=== PATIENT | female | born 1985 | race Two or more races ===

== ENCOUNTER 2016-04-14 13:12 | Emergency (ER) | payer MEDICAID, OTHER ==
[~2016-04-14] VITALS: Ht 167.6 cm; Wt 147.4 kg
[2016-04-14 14:26] LABS: Albumin 3.4 g/dL (3.4-5.0); BUN/Creatinine Ratio 20.8; Bilirubin, Total 0.2 mg/dL (0.2-1.0); Calcium 9.4 mg/dL (8.5-10.1); Magnesium 1.9 mg/dL (1.6-2.6); Potassium 3.7 mmol/L (3.5-5.1); Total Protein 7.8 g/dL (6.4-8.2)
[2016-04-14 15:45] LABS: Basophils # (auto) 0 uL; Basophils % (auto) 0.2 % (0.0-2.0); Eosinophils # (auto) 0.1 uL; Eosinophils % (auto) 1.8 % (0.0-7.0); Hematocrit 37.5 % (36.0-46.0); Hemoglobin 12.6 g/dL (12.2-16.2); Lymphocytes # (auto) 2.2 uL; Lymphocytes % (auto) 26.9 % (10.0-50.0); Mean Corpuscular Hgb Conc. 33.7 g/dL (32.0-36.0); Mean Corpuscular Volume 86.2 fL (80.0-100.0); Mean Platelet Volume 8.2 fL (7.4-10.4); Monocytes # (auto) 0.6 uL; Monocytes % (auto) 7.8 % (0.0-12.0); Neutrophils # (auto) 5.1 uL; Neutrophils % (auto) 63.3 % (37.0-80.0); Platelet Count (auto) 374 10^3/uL (140-450); Red Cell Distribution Width 13.6 % (11.6-16.0); White Blood Cell 8.1 10^3/uL (4.4-10.8)
[2016-04-14] MEDS ORDERED: SODIUM CHLORIDE 0.9% 1,000 ML IVB ONE (16:04)
[2016-04-14] MEDS ORDERED: ONDANSETRON HCL 4 MG/2 ML VIAL IV ONE (16:15)
[2016-04-14 16:24] LABS: Amylase 44 U/L (25-115)
[2016-04-14 17:30] VITALS: BP 145/72
[2016-04-14 18:05] LABS: Urine Bilirubin Negative (Negative); Urine Blood Negative /uL (Negative); Urine Color Yellow (Yellow); Urine Glucose Normal (Normal); Urine Ketone Negative (Negative); Urine Nitrite Negative (Negative); Urine RBC <1 /hpf (0 - 4); Urine Squamous Epithelial Cell FEW /hpf (<5); Urine Urobilinogen Normal (Negative); Urine pH 5.5 (5.0-8.0)
== END 2016-04-14 18:56 | disposition home or self-care (01) ==
LOC: ER 13:12
DX: R11.2 Nausea with vomiting, unspecified (principal); T38.3X5A Adverse effect of insulin and oral hypoglycemic [antidiabetic] drugs, initial encounter; R19.7 Diarrhea, unspecified; E11.9 Type 2 diabetes mellitus without complications; E07.9 Disorder of thyroid, unspecified; R42 Dizziness and giddiness; Z88.6 Allergy status to analgesic agent; Z88.1 Allergy status to other antibiotic agents; Y92.9 Unspecified place or not applicable
CPT/HCPCS: 36415; 76705; 80053; 81001; 81025; 82150; 82962; 83690; 83735; 85025; 94761; 96374; 99285; J2405; J7030

== ENCOUNTER 2017-02-19 11:45 | Emergency (ER) | payer MEDICAID ==
[~2017-02-19] VITALS: Ht 167.6 cm; Wt 147.9 kg
[2017-02-19 13:12] VITALS: BP 111/74
== END 2017-02-19 14:19 | disposition home or self-care (01) ==
LOC: ER 11:45
DX: J20.9 Acute bronchitis, unspecified (principal); E11.9 Type 2 diabetes mellitus without complications
CPT/HCPCS: 71020

== ENCOUNTER 2018-09-15 13:32 | Emergency (ER) | payer MEDICAID ==
[~2018-09-15] VITALS: Ht 167.6 cm; Wt 145.1 kg
[2018-09-15 15:08] LABS: Basophils # (auto) 0 uL; Basophils % (auto) 0.2 % (0.0-2.0); Eosinophils # (auto) 0 uL; Eosinophils % (auto) 0.3 % (0.0-7.0); Hemoglobin 13.5 g/dL (12.2-16.2); Lymphocytes # (auto) 0.5 uL; Lymphocytes % (auto) 8.2 % (10.0-50.0); Mean Corpuscular Hemoglobin 29.7 pg (28.0-32.0); Mean Corpuscular Hgb Conc. 33.8 g/dL (32.0-36.0); Mean Corpuscular Volume 87.7 fL (80.0-100.0); Monocytes # (auto) 0.3 uL; Monocytes % (auto) 4.3 % (0.0-12.0); Neutrophils # (auto) 5.4 uL; Nucleated Red Blood Cells % 0.1 %; Platelet Count (auto) 263 10^3/uL (140-450); Red Blood Cells 4.56 10^6/uL (4.0-5.20); Red Cell Distribution Width 12.3 % (11.8-14.3); White Blood Cell 6.2 10^3/uL (4.4-10.8)
[2018-09-15 15:22] LABS: Albumin 3.2 g/dL (3.4-5.0); Anion Gap 9 (5-15); Blood Urea Nitrogen 14 mg/dL (7-18); Calcium 8.5 mg/dL (8.5-10.1); Carbon Dioxide 24 mmol/L (21-32); Chloride 105 mmol/L (98-107); Glucose 199 mg/dL (74-106); Magnesium 1.9 mg/dL (1.6-2.6); Potassium 3.8 mmol/L (3.5-5.1); Sodium 138 mmol/L (136-145)
[2018-09-15 15:29] LABS: Alanine Aminotransferase 18 U/L (13-56); Alkaline Phosphatase 128 U/L (45-117); Aspartate Aminotransferase 22 U/L (15-37); BUN/Creatinine Ratio 14.4; Bilirubin, Total 0.4 mg/dL (0.2-1.0); GFR African American 84 mL/min; GFR Non-African American 69 mL/min; Total Protein 7.3 g/dL (6.4-8.2)
[2018-09-15 20:18] LABS: Urine Bacteria FEW /hpf (None Seen); Urine Blood Negative /uL (Negative); Urine Specific Gravity 1.024 (1.001-1.035); Urine WBC 1 /hpf (0 - 5)
[2018-09-16 01:11] VITALS: BP 115/65
== END 2018-09-16 00:48 | disposition home or self-care (01) ==
LOC: ER 13:35
DX: N83.202 Unspecified ovarian cyst, left side (principal); E11.9 Type 2 diabetes mellitus without complications; E07.9 Disorder of thyroid, unspecified; Z90.49 Acquired absence of other specified parts of digestive tract; Z88.8 Allergy status to other drugs, medicaments and biological substances
CPT/HCPCS: 36415; 76830; 76856; 80053; 81001; 81025; 83735; 84484; 85025; 93005

== ENCOUNTER → 2019-09-05 | Emergency (ER) | payer MEDICAID, OTHER ==
[~2019-09-05] VITALS: Ht 167.6 cm; Wt 143.8 kg
[~2019-09-05] MED LIST: ACETAMINOPHEN 500 MG TAB PO ONE; KETOROLAC TROMETH 30 MG/ML 1ML VIAL IV ONE; ONDANSETRON HCL 4 MG/2 ML VIAL IV ONE; SODIUM CHLORIDE 0.9% 1,000 ML IV ONE
[2019-09-05 14:48] LABS: Hemoglobin 12.9 g/dL (12.2-16.2); Mean Corpuscular Hemoglobin 27.9 pg (28.0-32.0); Mean Corpuscular Hgb Conc. 32.3 g/dL (32.0-36.0); Mean Corpuscular Volume 86.4 fL (80.0-100.0); Platelet Count (auto) 225 10^3/uL (140-450); Red Blood Cells 4.63 10^6/uL (4.0-5.20); Red Cell Distribution Width 13.2 % (11.8-14.3); White Blood Cell 2.6 10^3/uL (4.4-10.8)
[2019-09-05 14:52] LABS: Basophils % (manual) 0 (0.0-2.0); Blast Cells 0; Eosinophils % (manual) 0 (0-7); Metamyelocytes % 0; Myelocytes % 0; Promyelocytes % 0; Reactive Lymphocytes 0
[2019-09-05 14:56] LABS: Urine Bacteria FEW /hpf (None Seen); Urine Blood Negative /uL (Negative); Urine Specific Gravity 1.012 (1.001-1.035); Urine WBC <1 /hpf (0 - 5)
[2019-09-05 15:03] LABS: Anion Gap 5 (5-15); Blood Urea Nitrogen 14 mg/dL (7-18); Calcium 8.4 mg/dL (8.5-10.1); Carbon Dioxide 25 mmol/L (21-32); Chloride 106 mmol/L (98-107); Glucose 104 mg/dL (74-106); Potassium 3.8 mmol/L (3.5-5.1); Sodium 136 mmol/L (136-145)
[2019-09-05 15:08] LABS: Alanine Aminotransferase 17 U/L (13-56); Alkaline Phosphatase 70 U/L (45-117); Aspartate Aminotransferase 18 U/L (15-37); BUN/Creatinine Ratio 11.9; Bilirubin, Total 0.2 mg/dL (0.2-1.0); CRP High Sensitivity 0.71 mg/dL (< 0.3); GFR African American 67 mL/min; GFR Non-African American 55 mL/min; Lactate Dehydrogenase 199 U/L (84-246)
[2019-09-05 17:31] LABS: Band Neutrophils % (manual) 2; Lymphocytes % (manual) 22 (10.0-50.0); Monocytes % (manual) 36 (0-12)
[2019-09-05 18:22] VITALS: BP 128/78
== END | disposition home or self-care (01) ==
LOC: ER 13:26
DX: U07.1 COVID-19 (principal); B34.9 Viral infection, unspecified; E11.9 Type 2 diabetes mellitus without complications; Z88.8 Allergy status to other drugs, medicaments and biological substances; Z88.1 Allergy status to other antibiotic agents; Z90.49 Acquired absence of other specified parts of digestive tract
CPT/HCPCS: 36415; 71045; 80053; 81001; 81025; 82728; 83615; 83735; 83880; 84484; 85007; 85027; 85379; 86141; 87635; 93005; 96374; 96375; 99285; J1885; J2405

== ENCOUNTER 2020-11-21 20:29 | Emergency (ER) | payer BC, OTHER ==
[~2020-11-21] VITALS: Ht 170.2 cm; Wt 144.2 kg
[2020-11-21 22:11] LABS: Basophils # (auto) 0 10 ^3/uL (0-0.2); Basophils % (auto) 0.5 % (0.0-2.0); Eosinophils # (auto) 0.1 10 ^3/uL (0-0.8); Eosinophils % (auto) 2.1 % (0.0-7.0); Hematocrit 42.4 % (36.0-46.0); Hemoglobin 13.8 g/dL (12.2-16.2); Lymphocytes # (auto) 2.1 10 ^3/uL (0.4-5.4); Lymphocytes % (auto) 31.6 % (10.0-50.0); Mean Corpuscular Hemoglobin 28.6 pg (28.0-32.0); Mean Corpuscular Hgb Conc. 32.6 g/dL (32.0-36.0); Mean Corpuscular Volume 87.8 fL (80.0-100.0); Monocytes # (auto) 0.7 10 ^3/uL (0-1.3); Neutrophils # (auto) 3.6 10 ^3/uL (1.6-8.6); Neutrophils % (auto) 55.8 % (37.0-80.0); Red Blood Cells 4.83 10^6/uL (4.0-5.20); Red Cell Distribution Width 13.5 % (11.8-14.3); White Blood Cell 6.5 10^3/uL (4.4-10.8)
[2020-11-21 22:26] LABS: Albumin 3.6 g/dL (3.4-5.0); BUN/Creatinine Ratio 22.5; Calcium 8.9 mg/dL (8.5-10.1); Potassium 3.8 mmol/L (3.5-5.1)
[2020-11-21 22:29] LABS: Bilirubin, Total 0.2 mg/dL (0.2-1.0); Total Protein 7.8 g/dL (6.4-8.2)
[2020-11-22 01:36] LABS: Urine Bacteria FEW /hpf (None Seen); Urine Blood Negative /uL (Negative); Urine Specific Gravity 1.033 (1.001-1.035); Urine WBC 1 /hpf (0 - 5)
[2020-11-22] MEDS ORDERED: KETOROLAC TROMETH 30 MG/ML 1ML VIAL IM ONE (05:00)
[2020-11-22] MEDS ORDERED: ACETAMINOPHEN 325 MG TAB PO ONE (05:00)
[2020-11-22] MEDS ORDERED: ONDANSETRON ODT 4 MG TAB PO ONE (05:00)
[2020-11-22] MEDS ORDERED: MECLIZINE HCL 25 MG TAB PO ONE (05:00)
[2020-11-22 10:00] VITALS: BP 118/56
== END 2020-11-22 11:12 | disposition home or self-care (01) ==
LOC: ER 20:30
DX: R10.31 Right lower quadrant pain (principal); G44.209 Tension-type headache, unspecified, not intractable; E11.9 Type 2 diabetes mellitus without complications; Z90.49 Acquired absence of other specified parts of digestive tract; Z88.8 Allergy status to other drugs, medicaments and biological substances
CPT/HCPCS: 36415; 74176; 80053; 81001; 83690; 84702; 85025; 96372; 99285; J1885; J8597; Q0162; 93005